=== PATIENT | male | born 1985 | race African-American/Black ===

== ENCOUNTER 2020-11-29 09:21 | Emergency (ER) | payer SELFPAY ==
[2020-11-29 09:26] VITALS: BP 175/98; PULSE 108; RESP 16; TEMP 37.1; O2SAT 98; O2SAT 99
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
[2020-11-29 11:16] VITALS: BP 156/93; PULSE 81; RESP 16; O2SAT 98
== END 2020-11-29 11:30 | disposition home or self-care (01) ==
PROVIDERS: Emergency Provider Emergency Medicine
DX: S10.91XA Abrasion of unspecified part of neck, initial encounter (principal); S40.812A Abrasion of left upper arm, initial encounter; W25.XXXA Contact with sharp glass, initial encounter; Y24.9XXA Unspecified firearm discharge, undetermined intent, initial encounter
CPT/HCPCS: 10120; 99282

== ENCOUNTER 2021-11-10 03:15 | Emergency (ER) | payer OTHER, SELFPAY ==
[2021-11-10 03:17] VITALS: BP 179/101; PULSE 75; RESP 18; TEMP 36.4; O2SAT 100
--- NOTE | 2021-11-10 03:52 | ED.GENADULT ---
HPI - General Adult General Chief complaint: Unspecified Stated complaint: rectal bleeding Time Seen by Provider: 11/10/21 03:22 History of Present Illness HPI narrative: Patient is a 36-year-old male who presents ER with rectal bleeding. Noticed it tonight after having a bowel movement and while being in the bathtub. It is bright red. Its on paper when he wipes his buttock. He is not on any blood thinners. Reports he has been having some constipation took milk of magnesia. He had 2 good bowel movements before he noticed the bleeding. No fevers chills or sweats. Related Data Allergies Allergy/AdvReac Type Severity Reaction Status Date / Time No Known Allergies Allergy Verified 11/10/21 03:20 Review of Systems Review of Systems: All systems reviewed & are unremarkable except as noted in HPI and below Constitutional: Constitutional: Denies chills and Denies fever(s) Respiratory: Respiratory: Denies cough and Denies dyspnea Gastrointestinal: Gastrointestinal: Denies abdominal pain, Reports hematochezia, Reports constipation, Denies nausea and Denies vomiting Neurologic: Denies syncope PMFSH Past Medical History Medical History (Updated 11/10/21 @ 04:06 by Hussain Amezcua MD) Hypertension Surgical History Surgical History (Updated 11/10/21 @ 04:06 by Hussain Amezcua MD) No pertinent past surgical history Social History Social History (Updated 11/29/20 @ 10:27 by Amy Segovia MD) Smoking status: Current every day smoker Tobacco type: cigarettes Alcohol intake: current Substance use: current Substance use type: marijuana Gender identity (if verbalized by the patient): Male Exam Narrative: GENERAL: Well-appearing, well-nourished, and in no acute distress. HEAD: Normocephalic, atraumatic. ABDOMEN: Soft, nontender, nondistended. Rectal: Nonbleeding nonthrombosed external hemorrhoids noted. There are 2 bright red prolapsed internal hemorrhoids, 1 can be fully reduced though they are intermittently reduced. No active bleeding. EXTREMITIES: Normal range of motion. No edema. SKIN: Warm, dry, no rash. NEURO: Alert and oriented x3. PSYCH: Normal mood and affect. Course Course Emergency Course: Discussed treatment of hemorrhoids including which lewis pads which she has been using. Also discussed using Anusol suppositories and also using sits salt water baths. Will refer to general surgery. Vital Signs Vital signs: Vital Signs Temperature 97.6 F 11/10/21 03:17 Pulse Rate 75 11/10/21 03:17 Respiratory Rate 18 11/10/21 03:17 Blood Pressure 179/101 H 11/10/21 03:17 Pulse Oximetry 100 11/10/21 03:17 Oxygen Delivery Room Air 11/10/21 03:17 Temperature 97.6 F 11/10/21 03:17 Pulse Rate 75 11/10/21 03:17 Respiratory Rate 18 11/10/21 03:17 Blood Pressure 179/101 H 11/10/21 03:17 Pulse Oximetry 100 11/10/21 03:17 Oxygen Delivery Room Air 11/10/21 03:17 Medical Decision Making Vital Signs Vital Signs: Vital Signs Temperature 97.6 F 11/10/21 03:17 Pulse Rate 75 11/10/21 03:17 Respiratory Rate 18 11/10/21 03:17 Blood Pressure 179/101 H 11/10/21 03:17 Pulse Oximetry 100 11/10/21 03:17 Oxygen Delivery Room Air 11/10/21 03:17 Temperature 97.6 F 11/10/21 03:17 Pulse Rate 75 11/10/21 03:17 Respiratory Rate 18 11/10/21 03:17 Blood Pressure 179/101 H 11/10/21 03:17 Pulse Oximetry 100 11/10/21 03:17 Oxygen Delivery Room Air 11/10/21 03:17 Discharge Plan Discharge Clinical Impression: Hemorrhoid prolapse Patient Disposition: Home, Self-Care Condition: Stable Instructions: Hemorrhoids (DC) Additional Instructions: Return the ER if you have loss of consciousness, you have uncontrolled rectal bleeding, you develop severe pain around her anus, you have additional concerns. Prescriptions: New hydrocortisone acetate [Anusol-HC] 25 mg suppository 25 mg RECTAL BID Qty: 12 1RF Fol
== END 2021-11-10 04:09 | disposition home or self-care (01) ==
PROVIDERS: Emergency Provider Emergency Medicine
DX: K64.8 Other hemorrhoids (principal); I10 Essential (primary) hypertension
CPT/HCPCS: 99285

== ENCOUNTER 2023-05-24 01:09 | Emergency (ER) | payer OTHER, SELFPAY ==
[2023-05-24 01:10] VITALS: BP 194/104; PULSE 99; RESP 18; TEMP 36.3; O2SAT 97
[2023-05-24 02:25] VITALS: O2SAT 99
--- NOTE | 2023-05-24 02:32 | ED.GENADULT ---
HPI - General Adult General Chief complaint: Upper Respiratory Infection Stated complaint: sore throat, body aches, fever Time Seen by Provider: 05/24/23 02:23 History of Present Illness HPI narrative: Patient is a 37-year-old male who presents ER with concern for COVID/flu symptoms. Began having sore throat on 05/21/2023. A day later he developed body aches and chills. He has had mild sinus congestion during this time. He has also been having subjective fevers. No chest pain. No dyspnea. He does have exposure to COVID positive individuals. Related Data Allergies Allergy/AdvReac Type Severity Reaction Status Date / Time No Known Allergies Allergy Verified 05/24/23 02:25 Review of Systems Constitutional: Constitutional: Reports chills, Reports fatigue and Reports fever(s) ENT: Reports nasal congestion and Reports sore throat Cardiovascular: Cardiovascular: Reports no additional cardiovascular complaints Respiratory: Respiratory: Reports cough, Denies dyspnea and Denies wheezing PMFSH Past Medical History Medical History (Updated 05/24/23 @ 03:23 by Hussain Amezcua MD) Hypertension Surgical History Surgical History (Updated 11/10/21 @ 04:06 by Hussain Amezcua MD) No pertinent past surgical history Social History Social History (Updated 11/29/20 @ 10:27 by Amy Segovia MD) Smoking status: Current every day smoker Tobacco type: cigarettes Alcohol intake: current Substance use: current Substance use type: marijuana Gender identity (if verbalized by the patient): Male Exam Narrative: GENERAL: Well-appearing, well-nourished, and in no acute distress. HEAD: Normocephalic, atraumatic. NECK: Supple. CHEST: Clear to auscultation. No respiratory distress. HEART: Regular rate and rhythm. Normal peripheral pulses. SKIN: Warm, dry, no rash. NEURO: Alert and oriented x3. PSYCH: Normal mood and affect. Course Course Emergency Course: Patient informed of results. Will start Paxlovid. Patient is on 2 different medications for his hypertension, he is aware his blood pressure is high at this time and will follow-up with his doctor. Discharge home. Vital Signs Vital signs: Vital Signs Temperature 97.4 F L 05/24/23 01:10 Pulse Rate 99 05/24/23 01:10 Respiratory Rate 18 05/24/23 01:10 Blood Pressure 194/104 H 05/24/23 01:10 Pulse Oximetry 97 05/24/23 01:10 Oxygen Delivery Room Air 05/24/23 01:10 Temperature 97.4 F L 05/24/23 01:10 Pulse Rate 99 05/24/23 01:10 Respiratory Rate 18 05/24/23 01:10 Blood Pressure 194/104 H 05/24/23 01:10 Pulse Oximetry 99 05/24/23 02:25 Oxygen Delivery Room Air 05/24/23 02:25 Medical Decision Making Vital Signs Vital Signs: Vital Signs Temperature 97.4 F L 05/24/23 01:10 Pulse Rate 99 05/24/23 01:10 Respiratory Rate 18 05/24/23 01:10 Blood Pressure 194/104 H 05/24/23 01:10 Pulse Oximetry 97 05/24/23 01:10 Oxygen Delivery Room Air 05/24/23 01:10 Temperature 97.4 F L 05/24/23 01:10 Pulse Rate 99 05/24/23 01:10 Respiratory Rate 18 05/24/23 01:10 Blood Pressure 194/104 H 05/24/23 01:10 Pulse Oximetry 99 05/24/23 02:25 Oxygen Delivery Room Air 05/24/23 02:25 Lab Data Labs: Lab Results 05/24/23 Range/Units 02:24 Influenza A (RT-PCR) Negative (Negative) Influenza B (RT-PCR) Negative (Negative) RSV (RT-PCR) Negative (Negative) SARS-CoV-2 RNA (RT-PCR) Positive A (Negative) Discharge Plan Discharge Clinical Impression: COVID Patient Disposition: Home, Self-Care Condition: Stable Instructions: COVID-19 (Coronavirus Disease 2019) (ED) Additional Instructions: Return to the ER if he cannot breathe, you cannot swallow, you lose consciousness, or you have additional concerns. Prescriptions: New Paxlovid 300 mg (150 mg x 2)-100 mg tablets,dose pack See Rx Instructions .ROUTE .COMPLEX Qty: 30 0RF
[2023-05-24 03:07] LABS: Influenza A QL RT-PCR Negative (Negative); Influenza B QL RT-PCR Negative (Negative); RSV RNA, RT-PCR Negative (Negative); SARS-CoV-2 RNA PCR Positive (Negative)
[2023-05-24 03:26] VITALS: BP 162/102; PULSE 90; RESP 17; O2SAT 100
== END 2023-05-24 03:26 | disposition home or self-care (01) ==
LOC: ANHED 03:37
PROVIDERS: Emergency Provider Emergency Medicine
DX: U07.1 COVID-19 (principal); I10 Essential (primary) hypertension; F17.210 Nicotine dependence, cigarettes, uncomplicated
CPT/HCPCS: 87637; 99283

== ENCOUNTER 2023-09-21 15:28 | Emergency (ER) | payer OTHER, SELFPAY ==
[2023-09-21 15:39] VITALS: BP 159/100; PULSE 78; RESP 16; TEMP 36.6; O2SAT 98
--- NOTE | 2023-09-21 15:48 | ED.DENTAL ---
HPI - Dental/Oral General Chief complaint: Dental/Oral Stated complaint: dental abcess Time Seen by Provider: 09/21/23 15:41 History of Present Illness HPI Narrative: patient is a 38-year-old male who presents ER with dental pain. Began this morning upon waking up. He has fractured 2 on the left upper side of his mouth. No facial swelling. No difficulty breathing or swallowing. Related Data Allergies Allergy/AdvReac Type Severity Reaction Status Date / Time No Known Allergies Allergy Verified 05/24/23 02:25 Review of Systems Constitutional: Constitutional: Reports no additional constitutional complaints ENT: Denies nasal congestion and Denies sore throat Comments: + Dental pain PMFSH Past Medical History Medical History (Updated 09/21/23 @ 15:50 by Hussain Amezcua MD) Hypertension Surgical History Surgical History (Updated 11/10/21 @ 04:06 by Hussain Amezcua MD) No pertinent past surgical history Social History Social History (Updated 11/29/20 @ 10:27 by Amy Segovia MD) Smoking status: Current every day smoker Tobacco type: cigarettes Alcohol intake: current Substance use: current Substance use type: marijuana Gender identity (if verbalized by the patient): Male Exam Narrative: GENERAL: Well-appearing, well-nourished, and in no acute distress. HEAD: Normocephalic, atraumatic. ENT: Mucous membranes moist. Fullness/tenderness/erythema at the buccal mucosal folds at tooth 13/14. CHEST: Clear to auscultation. No respiratory distress. HEART: Regular rate and rhythm. Normal peripheral pulses. NEURO: Alert and oriented x3. Course Course Emergency Course: Augmentin and [place] for home. Vital Signs Vital signs: Vital Signs Temperature 97.8 F 09/21/23 15:39 Pulse Rate 78 09/21/23 15:39 Respiratory Rate 16 09/21/23 15:39 Blood Pressure 159/100 H 09/21/23 15:39 Pulse Oximetry 98 09/21/23 15:39 Temperature 97.8 F 09/21/23 15:39 Pulse Rate 78 09/21/23 15:39 Respiratory Rate 16 09/21/23 15:39 Blood Pressure 159/100 H 09/21/23 15:39 Pulse Oximetry 98 09/21/23 15:39 Discharge Plan Discharge Clinical Impression: Dental abscess Patient Disposition: Home, Self-Care Condition: Stable Instructions: Dental Abscess (ED) Additional Instructions: Return the ER if you cannot keep down food water, he lose consciousness, have additional concerns. It is take the full course of antibiotics. Perform warm salt water rinses to 3 times a day. Prescriptions: New hydrocodone-acetaminophen 5-325 mg tablet 1 tablet PO Q6H PRN (Reason: pain) Qty: 10 0RF amoxicillin-pot clavulanate 875-125 mg tablet 1 tablet PO Q12H Qty: 20 0RF hydrocodone-acetaminophen 5-325 mg tablet 1 tablet PO Q6H PRN (Reason: pain) Qty: 10 0RF No Action hydrocortisone acetate [Anusol-HC] 25 mg suppository 25 mg RECTAL BID Qty: 12 1RF Paxlovid 300 mg (150 mg x 2)-100 mg tablets,dose pack See Rx Instructions .ROUTE .COMPLEX Qty: 30 0RF Rx Instructions: take TWO 150 mg tablets of nirmatrelvir with ONE 100 mg tablet of ritonavir twice daily for 5 days Follow-up/Referrals: Dental Referral Line [Outside] - 1 Week UNKNOWN,DOCTOR [Primary Care Provider] -
== END 2023-09-21 16:07 | disposition home or self-care (01) ==
LOC: ANHED 16:01
PROVIDERS: Emergency Provider Emergency Medicine
DX: K04.7 Periapical abscess without sinus (principal); I10 Essential (primary) hypertension; F17.210 Nicotine dependence, cigarettes, uncomplicated
CPT/HCPCS: 99283

== ENCOUNTER 2023-12-07 20:44 | Emergency (ER) | payer OTHER, SELFPAY ==
--- NOTE | ~2023-12-07 | XR_ITS ---
EXAMINATION: XR shoulder LT min 2V DATE: 12/07/2023 20:59 INDICATION: Left shoulder pain. TECHNIQUE: 4 views of left shoulder were obtained. COMPARISON: None. FINDINGS: Bone alignment is normal. No fracture. Glenohumeral joint is normal. There is mild acromioc lavicular joint osteoarthritis. IMPRESSION: 1. Mild acromioclavicular joint osteoarthritis. Reviewed, dictated and finalized at location E.
[2023-12-07 20:50] VITALS: BP 160/105; PULSE 85; RESP 15; TEMP 36.5; O2SAT 100
--- NOTE | 2023-12-07 21:47 | ED.GENADULT ---
[facility] - General Adult General Chief complaint: Extremity Injury, Upper Stated complaint: shoulder pain Time Seen by Provider: 12/07/23 21:01 Source: patient Mode of arrival: ambulatory Limitations: no limitations History of Present Illness [facility] narrative: This is a 38-year-old male who presents to the ED with chief complaint of left shoulder pain onset x5 days. No specific injury. States he woke up with pain. Is worse with certain movements and will specifically with laying on the left side. No exertional component to the pain. Denies chest pain, shortness of breath, back pain, numbness, weakness. Denies neck pain. Related Data Allergies Allergy/AdvReac Type Severity Reaction Status Date / Time No Known Allergies Allergy Verified 12/07/23 20:44 Review of Systems Review of Systems: All systems as dictated in [facility] Past Medical History Medical History (Updated 12/08/23 @ 00:00 by Umer Ovalle) Hypertension Surgical History Surgical History (Updated 11/10/21 @ 04:06 by Hussain Amezcua MD) No pertinent past surgical history Social History Social History (Updated 11/29/20 @ 10:27 by Amy Segovia MD) Smoking status: Current every day smoker Tobacco type: cigarettes Alcohol intake: current Substance use: current Substance use type: marijuana Gender identity (if verbalized by the patient): Male Exam Narrative: GENERAL: Well-appearing, well-nourished, and in no acute distress. HEAD: Normocephalic, atraumatic. EYES: PERRLA and EOMI. ENT: Nares clear, no rhinorrhea or epistaxis. Mucous membranes moist. Oropharynx without tonsillar hypertrophy exudate or other lesions. NECK: Supple. No adenopathy or masses. CHEST: No respiratory distress. Clear to auscultation. No wheezes rales or rhonchi HEART: Regular rate and rhythm. No murmur heard. Normal peripheral pulses. ABDOMEN: Soft, nontender, nondistended, normal active bowel sounds. MSK: Normal range of motion. No edema. Mild tenderness to the left pectoralis muscle distribution. No weakness. Minimal tenderness throughout the shoulder joint. Neurovascular intact distally SKIN: Warm, dry, no rash. NEURO: Alert and oriented x4. No focal deficits. PSYCH: Normal mood and affect. Course Vital Signs Vital signs: Vital Signs Temperature 97.7 F 12/07/23 20:50 Pulse Rate 85 12/07/23 20:50 Respiratory Rate 15 12/07/23 20:50 Blood Pressure 160/105 H 12/07/23 20:50 Pulse Oximetry 100 12/07/23 20:50 Oxygen Delivery Room Air 12/07/23 20:50 Temperature 97.7 F 12/07/23 20:50 Pulse Rate 85 12/07/23 20:50 Respiratory Rate 15 12/07/23 20:50 Blood Pressure 160/105 H 12/07/23 20:50 Pulse Oximetry 100 12/07/23 20:50 Oxygen Delivery Room Air 12/07/23 20:50 Medical Decision Making MDM Narrative Medical decision making narrative: this is a 38-year-old male who presents to the ED with chief complaint of 5 days of nontraumatic left shoulder pain. Vitals show elevated blood pressure but otherwise normal. Exam remarkable for the above. No chest pain. Low suspicion for cardiac involvement. Exam shows reproducible pain with palpation of the left Pectoralis muscles. left shoulder x-ray shows mild AC joint arthritis but patient does not have pain in this spot. Rx for naproxen for MSK pain Pt will be discharged in stable condition. Return precautions given and supportive measures discussed. Pt is understanding and agreeable with plan for discharge and follow-up with PCP. Vital Signs Vital Signs: Vital Signs Temperature 97.7 F 12/07/23 20:50 Pulse Rate 85 12/07/23 20:50 Respiratory Rate 12/07/23 20:50 Blood Pressure 160/105 H 12/07/23 20:50 Pulse Oximetry 100 12/07/23 20:50 Oxygen Delivery Room Air 12/07/23 20:50 Temperature 97.7 F 12/07/23 20:50 Pulse Rate 85 12/07/23 20:50 Respiratory Rate 15 12/07/23 20:50 Blood Pressure 160/105 H 06
== END 2023-12-07 21:55 | disposition home or self-care (01) ==
PROVIDERS: Emergency Provider Physician Assistant
DX: S29.011A Strain of muscle and tendon of front wall of thorax, initial encounter (principal); I10 Essential (primary) hypertension; F17.210 Nicotine dependence, cigarettes, uncomplicated; M19.012 Primary osteoarthritis, left shoulder; X58.XXXA Exposure to other specified factors, initial encounter
CPT/HCPCS: 73030; 99283